=== PATIENT | male | born 2000 | race Caucasian/White ===

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

== ENCOUNTER 2020-10-08 22:23 | Emergency (ER) | payer OTHER, SELFPAY ==
[~2020-10-08] VITALS: Ht 185.4 cm; Wt 99.1 kg
[2020-10-08 22:25] VITALS: BP 158/90
[2020-10-08] MEDS ORDERED: CLIN150C15 PO (22:31)
--- NOTE | 2020-10-08 22:56 | REPVR ---
PROCEDURE INFORMATION: Exam: XR Right Hand Exam date and time: 10/08/2020 10:41 PM Age: 19 years old Clinical indication: Pain; Hand; Right; Additional info: Punched a window sill TECHNIQUE: Imaging protocol: XR Right hand. Views: 3 or more views. COMPARISON: CR Hand, complete 04/24/2015 11:10 PM FINDINGS: Bones/joints: Dorsal soft tissue swelling is present at the level of the distal metacarpals. Bony structures are aligned normally. Degree of osseous mineralization is age-appropriate. Acute transverse fracture, midshaft ring finger metacarpal with minimal apex dorsal angulation and no significant displacement. Old healed 5th metacarpal shaft fracture. No concerning osseous lesion. Joint spaces of the hand are well-maintained. Soft tissues: No evidence of soft tissue laceration or opaque foreign body. IMPRESSION: Acute nondisplaced transverse fracture through the ring finger metacarpal mid diaphysis with mild apex dorsal angulation Electronically signed by: Quincy Humphreys On 10/08/2020 22:57:19 PM
[2020-10-09] MEDS ORDERED: ACETAMINOPHEN 500 MG TAB PO ONE (06:15)
[2020-10-09] MEDS ORDERED: BOOSTRIX/ADACEL VACCINE (DIPHTH/PERTUSS/ACELL/TETANUS) 0.5ML SYR IM ONE (06:15)
[2020-10-09] MEDS ORDERED: CEPH500C PO (06:16)
== END 2020-10-09 06:55 | disposition home or self-care (01) ==
LOC: M ED 22:23
DX: S62.344A Nondisplaced fracture of base of fourth metacarpal bone, right hand, initial encounter for closed fracture (principal); W22.8XXA Striking against or struck by other objects, initial encounter; Y92.9 Unspecified place or not applicable; Y93.9 Activity, unspecified; Y99.9 Unspecified external cause status; F17.200 Nicotine dependence, unspecified, uncomplicated

== ENCOUNTER → 2021-03-24 | Outpatient (REF) | payer BC ==
[~2021-03-24] MED LIST: CEPH500C PO; CLIN150C17 PO
== END ==
LOC: M LAB REF 22:05
PROVIDERS: ATTEND Physician Assistant
DX: R05 Cough (principal)

== ENCOUNTER 2021-08-01 23:24 | Emergency (ER) | payer BC ==
[~2021-08-01] VITALS: Ht 188 cm; Wt 108.0 kg
[2021-08-01] MEDS ORDERED: MORPHINE 2 MG/ML 1ML VIAL (J2270) IV ONE (23:40)
[2021-08-02] MEDS ORDERED: LIDOCAINE 2% MDV 20ML VIAL SC ONE (00:40)
[2021-08-02] MEDS ORDERED: BOOSTRIX/ADACEL VACCINE (DIPHTH/PERTUSS/ACELL/TETANUS) 0.5ML SYR IM ONE (01:35)
[2021-08-02] MEDS ORDERED: PERCOCET 5MG/325MG TAB PO ONE (01:35)
[2021-08-02] MEDS ORDERED: AMPICILLIN SOD/SULBACTAM SOD 3 GM in D5W MINI-BAG PLUS 100 ML IV ONE (01:35)
[2021-08-02] MEDS ORDERED: BACITRACIN OINTMENT 30GM TUBE TOP ONE (01:40)
[2021-08-02] MEDS ORDERED: OXYCODONE/APAP 5MG/325MG(BULK FOR ED) 1 TABLET PO ONE (01:40)
[2021-08-02 02:00] VITALS: BP 168/77
[2021-08-02] MEDS ORDERED: OMEP40CA4 PO (12:34)
[2021-08-03] MEDS ORDERED: OXYC1TAB23 PO (21:31)
== END 2021-08-02 03:06 | disposition home or self-care (01) ==
LOC: M ED 23:24
DX: S56.922A Laceration of unspecified muscles, fascia and tendons at forearm level, left arm, initial encounter (principal); W26.0XXA Contact with knife, initial encounter; F10.10 Alcohol abuse, uncomplicated; Y92.009 Unspecified place in unspecified non-institutional (private) residence as the place of occurrence of the external cause; Y93.9 Activity, unspecified; Y99.9 Unspecified external cause status
CPT/HCPCS: 12034; 73090; 90471; 90715; 96365; 96375; 99284; J2270

== ENCOUNTER 2021-08-03 11:18 | Day surgery (SDC) | payer BC ==
[~2021-08-03] VITALS: Ht 188 cm; Wt 101.2 kg
[~2021-08-03 11:18] MED LIST changes: +D5W/0.2% SODIUM CHLORIDE 1,000 ML IV ONE; +LR 1,000 ML IV ONE; +OMEP40CA4 PO; +ceFAZolin SOD 2 GM in IV 1 EA IV ONE
[2021-08-03] MEDS ORDERED: BUPIVACAINE HCL 0.25% 30ML VIAL As Ordered ONE (18:27)
[2021-08-03] MEDS ORDERED: MUPIROCIN 2% OINT 22 GM TUBE As Ordered ONE (18:28)
[2021-08-03] MEDS ORDERED: LIDOCAINE 2% 100MG/5ML SDV (FOR ANES.) As Ordered ONE (19:04)
[2021-08-03] MEDS ORDERED: MIDAZOLAM INJ 2MG/2ML VIAL (J2250 PER 1MG) As Ordered ONE (19:04)
[2021-08-03] MEDS ORDERED: dexameTHASONE 4 MG/ML 1ML VIAL (J1100 PER 1MG) As Ordered ONE (19:04)
[2021-08-03] MEDS ORDERED: fentaNYL 100 MCG/2 ML INJECTION As Ordered ONE ×2 (19:04→20:23)
[2021-08-03] MEDS ORDERED: ONDANSETRON 4MG/2ML VIAL As Ordered ONE (19:04)
[2021-08-03] MEDS ORDERED: propofoL 200 MG/20 ML VIAL As Ordered ONE (19:04)
[2021-08-03] MEDS ORDERED: ACETAMINOPHEN 1000MG 100ML IV BTL (OFIRMEV) (J0131 PER 10MG) As Ordered ONE (19:11)
[2021-08-03] MEDS ORDERED: KETOROLAC 60MG 2ML VIAL As Ordered ONE (20:56)
[2021-08-03] MEDS ORDERED: OXYC1TAB23 PO (21:31)
[2021-08-03] MEDS ORDERED: fentaNYL 100 MCG/2 ML INJECTION IV PRN (21:40)
[2021-08-03] MEDS ORDERED: oxyCODONE 5MG TAB PO PRN (21:40)
[2021-08-03] MEDS ORDERED: LR 1,000 ML IV SCH (21:40)
[2021-08-03] MEDS ORDERED: ONDANSETRON 4MG/2ML VIAL IV PRN (21:40)
[2021-08-03 22:00] VITALS: BP 130/86
== END 2021-08-03 22:21 | disposition home or self-care (01) ==
LOC: M SDC 11:18
PROVIDERS: ATTEND Orthopaedic Surgery Hand Surgery
DX: S56.521A Laceration of other extensor muscle, fascia and tendon at forearm level, right arm, initial encounter (principal); S56.821A Laceration of other muscles, fascia and tendons at forearm level, right arm, initial encounter; S64.21XA Injury of radial nerve at wrist and hand level of right arm, initial encounter; F17.290 Nicotine dependence, other tobacco product, uncomplicated; J45.909 Unspecified asthma, uncomplicated; K21.9 Gastro-esophageal reflux disease without esophagitis; W26.0XXA Contact with knife, initial encounter; R06.83 Snoring; Y92.9 Unspecified place or not applicable; Y93.9 Activity, unspecified; Y99.9 Unspecified external cause status
CPT/HCPCS: 11042; 25260; 25263; 25270; 64910; C1762; J0131; J0690; J1100; J1885; J2250; J2405; J3010

== ENCOUNTER → 2023-02-16 | Outpatient (REF) | payer BC ==
[~2023-02-16] MED LIST changes: -D5W/0.2% SODIUM CHLORIDE 1,000 ML IV ONE; -LR 1,000 ML IV ONE; +OXYC1TAB23 PO; -ceFAZolin SOD 2 GM in IV 1 EA IV ONE
== END ==
LOC: M WUC 18:54
PROVIDERS: ATTEND Student in an Organized Health Care Education/Training Program
DX: R19.7 Diarrhea, unspecified (principal)

== ENCOUNTER 2023-12-24 20:56 | Inpatient (IN) | payer BC, SELFPAY ==
[~2023-12-24] VITALS: Ht 188 cm; Wt 118.2 kg
[2023-12-24 21:48] LABS: HEMATOCRIT 49.6 % (42.0-52.0); HEMOGLOBIN 16.3 g/dl (13.5-17.5); MEAN CORPUSCULAR HEMOGLOBIN 29.7 pg (27.0-33.0); MEAN CORPUSCULAR HGB CONC 32.9 g/dl (32.0-36.5); MEAN CORPUSCULAR VOLUME 90.3 fl (80.0-96.0); PLATELET COUNT, AUTOMATED 364 10^3/uL (150-450); RED BLOOD COUNT 5.49 10^6/uL (4.30-6.10); WHITE BLOOD COUNT 10.6 10^3/uL (4.0-10.0)
[2023-12-24] MEDS ORDERED: OMEP1CAP73 PO (21:54)
[2023-12-24] MEDS ORDERED: HOME MED LIST COMPLETE! XX SCH (21:55)
[2023-12-24 22:11] LABS: AMPHETAMINES LEVEL URINE NEGATIVE (NEGATIVE); BARBITURATES URINE NEGATIVE (NEGATIVE); BENZODIAZEPINES URINE NEGATIVE (NEGATIVE); CANNABINOIDS URINE NEGATIVE (NEGATIVE); COCAINE METABOLITE URINE NEGATIVE (NEGATIVE); METHADONE URINE NEGATIVE (NEGATIVE); OPIATES URINE NEGATIVE (NEGATIVE); PHENCYCLIDINE URINE NEGATIVE (NEGATIVE)
[2023-12-24 22:14] LABS: ALKALINE PHOSPHATASE 87 U/L (46-116); ALT/SGPT 79 U/L (7.0-40); AST/SGOT 82 U/L (<34); BILIRUBIN,DIRECT 0.1 MG/DL (<0.4); BILIRUBIN,TOTAL 0.3 MG/DL (0.3-1.2); BLOOD UREA NITROGEN 7 MG/DL (9-23); CALCIUM LEVEL 8.7 MG/DL (8.5-10.1); CARBON DIOXIDE LEVEL 24 MMOL/L (20-31); CHLORIDE LEVEL 109 MMOL/L (98-107); CREATININE FOR GFR 1.04 MG/DL (0.70-1.30); GLOMERULAR FILTRATION RATE > 60.0 (>60); GLUCOSE, FASTING 105 MG/DL (60-100); POTASSIUM SERUM 3.7 MMOL/L (3.5-5.1); SALICYLATE LEVEL < 3.0 MG/DL (<30); SODIUM LEVEL 143 MMOL/L (136-145); TOTAL PROTEIN 7.8 G/DL (5.7-8.2)
[2023-12-24 22:46] LABS: ETHYL ALCOHOL (ETHANOL) 0.309 % (0.000-0.010)
[2023-12-25] MEDS: NEOSPORIN OINT 0.9 GM PKT TOP ONE (04:10)
[2023-12-25] MEDS ORDERED: LORazepam 2 MG TAB PO PRN ×2 (10:15→12:25)
[2023-12-25] MEDS: FOLIC ACID 1MG TAB PO SCH (10:31)
[2023-12-25] MEDS: MULTIVITAMINS/MINERALS THERAP 1 TAB PO SCH (10:31)
[2023-12-25] MEDS: THIAMINE 100 MG TAB PO SCH ×2 (10:32→21:28)
[2023-12-25] MEDS ORDERED: ACETAMINOPHEN TAB 650MG DOSE (2X325MG) PO PRN (12:25)
[2023-12-25] MEDS ORDERED: OMEPRAZOLE 20MG CAP PO PRN (12:25)
[2023-12-25] MEDS ORDERED: diphenhydrAMINE 25MG CAP PO PRN (12:25)
[2023-12-25] MEDS ORDERED: MOM 30ML SUSPENSION UDC PO PRN (12:25)
[2023-12-25] MEDS ORDERED: MAALOX 30 ML SUSP *UDC PO PRN (12:25)
[2023-12-25] MEDS ORDERED: IBUPROFEN 400MG TAB PO PRN (12:25)
[2023-12-25] MEDS ORDERED: OLANZapine ORAL DISINTEGRATING TAB 5MG PO PRN (12:25)
[2023-12-25] MEDS: LORazepam 2 MG TAB PO ONE (13:48)
[2023-12-25] MEDS: NICOTINE 14 MG/24 HR TRANSDERMAL TD SCH (13:54)
[2023-12-25 16:00] VITALS: BP 142/89
[2023-12-26 06:28] VITALS: BP 140/94; TEMP 97
[2023-12-26] MEDS: FOLIC ACID 1MG TAB PO SCH (08:28)
[2023-12-26] MEDS: MULTIVITAMINS/MINERALS THERAP 1 TAB PO SCH (08:28)
[2023-12-26 10:00] VITALS: BP 160/98
[2023-12-26] MEDS: NICOTINE 21MG/24HR 1 EA TRANSDERMAL TD PRN (11:28)
[2023-12-26 16:41] VITALS: BP 160/90
[2023-12-26 18:24] VITALS: BP 162/90; TEMP 97.8
[2023-12-26] MEDS: traZODone 50 MG TAB PO PRN (20:23)
[2023-12-27 06:22] VITALS: BP 148/90; TEMP 97.1; O2SAT 100
[2023-12-27] MEDS: SERTRALINE HCL 50 MG TAB PO SCH (08:38)
[2023-12-27 14:00] VITALS: BP 155/83
[2023-12-27 15:39] VITALS: BP 155/83; TEMP 98.4; O2SAT 99
[2023-12-27] MEDS: NALTREXONE 50 MG TAB PO SCH (20:20)
[2023-12-28 06:12] VITALS: BP 142/90; TEMP 97.7; O2SAT 99
[2023-12-28] MEDS ORDERED: FOLI1TAB11 PO (07:47)
[2023-12-28] MEDS ORDERED: Multivitamins PO (07:47)
[2023-12-28] MEDS ORDERED: NICO21PAT TD (07:47)
[2023-12-28] MEDS ORDERED: SERT50TA29 PO (07:47)
[2023-12-28] MEDS ORDERED: NALT50TA4 PO (07:47)
[2023-12-28] MEDS ORDERED: THIA100TA PO (07:47)
== END 2023-12-28 10:00 | disposition home or self-care (01) | DRG 754 ==
LOC: M ED 20:56 → M ED INP 12-25 12:25 → M PSY 12-25 15:34
PROVIDERS: ADMIT Student in an Organized Health Care Education/Training Program; ATTEND Student in an Organized Health Care Education/Training Program
DX: F32.A Depression, unspecified (principal); F41.9 Anxiety disorder, unspecified; F10.920 Alcohol use, unspecified with intoxication, uncomplicated; F43.10 Post-traumatic stress disorder, unspecified; R45.850 Homicidal ideations; R45.851 Suicidal ideations; F90.9 Attention-deficit hyperactivity disorder, unspecified type; K21.9 Gastro-esophageal reflux disease without esophagitis; G43.909 Migraine, unspecified, not intractable, without status migrainosus; F17.290 Nicotine dependence, other tobacco product, uncomplicated; S21.91XA Laceration without foreign body of unspecified part of thorax, initial encounter; X78.8XXA Intentional self-harm by other sharp object, initial encounter; Z79.899 Other long term (current) drug therapy; Y92.9 Unspecified place or not applicable; Y93.9 Activity, unspecified; Z91.52 Personal history of nonsuicidal self-harm; Z91.51 Personal history of suicidal behavior; Z83.3 Family history of diabetes mellitus; Z81.8 Family history of other mental and behavioral disorders